=== PATIENT | male | born 1995 | race Caucasian/White ===

== ENCOUNTER 2023-03-06 12:28 | Outpatient (AMB) | payer MEDICARE, MEDICAID, SELFPAY ==
--- NOTE | 2023-03-06 12:36 | A.OFFPC_ITS ---
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 He has PMH significant for anxiety, depression, PTSD, bipolar, and autism spectrum disorder. He reports tightness to his left knee for the past 1 month especially with climbing stairs. He states it feels like it locks. It feels like a little [place] horse in my knee. He reports occasional pain. He reports h/o walking on his toes since childhood. He states he is not interested in medication therapy at this time.? He admits he has been contacted to talk to a therapist but he sleeps during the day and has not been able to connect.? He notes he exercises at the gym every other day and intends to start going daily. His grandmother states the patient continues to spend more time in his room, on his computer. He has a positive response to the PHQ-9 question regarding Thoughts that you would be better off or of hurting yourself in some way. He emphasized too much pressure, too much stress, i can't keep up no more, i'm losing pace, i feel like i'm crashing, i'm getting tired, i'm getting stressed, i'm about to crash. He denies SI/HI at this time, denies plan of committing suicide, and contracts for safety. [facility] Medical History ADHD Anxiety Asperger syndrome Autism spectrum disorder Bipolar 1 disorder Bladder problem Broken femur History of violent behavior Intellectual developmental disorder, mild Tourettes syndrome Uncooperative behavior Family History Father Mentally challenged Social History Housing: House Patient Tobacco Use Status: Never used Tobacco e-Cigarette/Vaping Use: Never Used service: No Current occupational status: unemployed Current occupation: Patient is on [employer]SI Cognitive needs: Yes Hearing needs: No Vision needs: Yes Questionnaire PHQ-9 Over the last 2 weeks, how often have you been bothered by any of the following problems? 1. Little interest or pleasure in doing things: several days 2. Feeling down, depressed, or hopeless: more than half the days 3. Trouble falling or staying asleep, or sleeping too much: nearly every day 4. Feeling tired or having little energy: nearly every day 5. Poor appetite or overeating: not at all 6. Feeling bad about yourself - or that you are a failure or have let yourself or your family down: more than half the days 7. Trouble concentrating on things, such as reading the newspaper or watching television: several days 8. Moving or speaking so slowly that other people could have noticed. Or the opposite - being so fidgety or restless that you have been moving around a lot more than usual: more than half the days 9. Thoughts that you would be better off or of hurting yourself in some way: several days Total score: 15 Depression Screening Interpretation: Positive Depression Screening Follow-up: Existing condition and Community Mental Health Worker F/U 68956 - PHQ-9 Billing: Yes Source: Developed by Drs. Marco De Souza, Tahira Marshall, Nicko Dorado and colleagues, with an educational hailey from [employer]. MIRNA-7 AMB Questionnaire MIRNA-7 Date MIRNA - 7 assessed: 03/06/23 Feeling nervous, anxious, or on edge: 3 = Nearly every day Not being able to stop or control worryin = Several days Worrying too much about different things: 0 = Not at all Trouble relaxin = Not at all Being so restless that it is hard to sit still: 0 = Not at all Becoming easily annoyed or irritable: 3 = Nearly every day Feeling afraid as if something awful might happen: 1 = Several days Total MIRNA-7 score (0-4 normal; 5-9 mild; 10-14 moderate; 15-21 severe): 8 Source: Developed by Drs. Marco De Souza, Tahira Marshall, Nicko Dorado and colleagues, with an educational hailey from [employer]. MIRNA-7 Assessment Billing MINRA-7 Assessment Tool: MIRNA-7 Assessment 80226 Review of Systems Const Details: Const Denies chills, Denies fatigue, Denies fever(s), Denies headache(s) and Denies weakness ENT Denies dizziness and Denies headache(s) Card Denies chest pain, Denies lightheadedness, Denies dyspnea and Denies other (Palpitations) Resp Denies cough, Denies dyspnea, Denies wheezing and Denies other ( shortness of breath) GI Denies abdominal pain, Denies melena, Denies hematochezia, Denies change in bowel habits, Denies dyspepsia and Denies nausea Denies hematuria and Denies dysuria Musc Denies abnormal gait, Denies myalgias, Denies arthralgias, Denies numbness and Denies tingling Skin/Breast Denies rash, Denies unusual bruising and Denies wounds Neuro Denies abnormal gait, Denies dizziness, Denies headache(s), Denies memory loss, Denies numbness, Denies Sensory deficit (Neuro), Denies tingling and Denies weakness Psych Denies anxiety and Denies depression Endo Denies fatigue Aller/Immun Denies wheezing Physical exam (Primary Care) BMI result Body Mass Index 30.3 Tobacco/Smoking Status: Tobacco use Status Tobacco use date assessed 01/10/23 01/10/23 15:32 Patient Tobacco Use Status Never used Tobacco 01/10/23 15:20 e-Cigarette/Vaping Use Never Used 01/10/23 15:20 Depression Screening Interpretation: Positive Depression Screening Follow-up: Existing condition and Community Mental Health Worker F/U Const Other: General: no acute distress and well developed Nutritional Appearance: well nourished Orientation/consciousness: patient oriented x3 HENMT Head: Yes normocephalic and Yes atraumatic Eyes General: appearance normal, both eyes and all related structures Pupils: Equal, round and reactive pupils present EOM: EOMs intact bilaterally Resp Effort & Inspection: normal respiratory effort Auscultation: clear to auscultation bilaterally Cardio Rate: regular rate Rhythm: regular rhythm Heart sounds: S1 normal heart sound present, S2 normal heart sound present, no gallops, no murmurs and no rubs GI Palpation (GI): No Abdominal aortic bruit present, Soft to palpation, nontender, No hepatosplenomegaly present and No Rebound tenderness present Auscultation: normal bowel sounds General: Yes no CVA tenderness Back/Spine/Pelvis Back: no CVA tenderness Cervical Spine: cervical ROM normal and No Cervical spine tenderness Thoracic/Lumbar Spine: thoraco-lumbar ROM normal, No pain with thoraco-lumbar ROM, No thoracic spinal tenderness and No lumbar spinal tenderness Extrem General: Yes normal to inspection, No edema and No calf tenderness Normal range of motion of bilateral knees, no erythema, edema, or overt signs of trauma or injury Skin General: warm and dry. Normal skin color. Normal skin turgor Lesions: no lesions Rashes: no rashes Trauma: no lacerations or abrasions Wounds: no wounds Nails: normal Neuro General: patient oriented x3, gait normal and no focal neuro deficit Cranial nerves: Yes Equal, round and reactive pupils present Cognition (Neuro): normal cognition Gait exam (Neuro): Normal gait present Sensory Exam: No Sensory deficit (Neuro) Psych Appearance: grossly normal Affect: normal affect Attitude: cooperative Thought process: Normal thought process present Assessment and Plan Assessment & Plan (1) Anxiety: Code(s): F41.9 - Anxiety disorder, unspecified Plan: PHQ-9 and MIRNA-7 scores revealed moderately severe depression and mild anxiety respectively Continues to decline medication regimen He met with the community navigator who provided resources to help him connect to a therapist Routine exercise encouraged Encouraged to inform his grandmother or crisis with SI/HI up plan of committing suicide Advised to get outstanding fasting blood work done Follow-up in 2 months or return sooner with worsening or new symptoms Verbalized understanding and agreed with treatment plan. (2) Depression: Code(s): F32.A - Depression, unspecified Plan: As above (3) ADHD: Code(s): F90.9 - Attention-deficit hyperactivity disorder, unspecified type Plan: As above (4) Stiffness of left knee: Code(s): M25.662 - Stiffness of left knee, not elsewhere classified Plan: He reports tightness to his left knee for the past 1 month especially with climbing stairs. He states it feels like it locks. It feels like a little [place] horse in my knee. He reports occasional pain. He reports h/o walking on his toes since childhood. Normal range of motion of bilateral knees, no erythema, edema, or overt signs of trauma or injury His symptoms may be related to history of walking on his toes Referred to PT May take Tylenol ibuprofen for pain or discomfort Follow-up with worsening or new symptoms Verbalized understanding and agreed with treatment plan. Orders: Orders PT Evaluation and Treatment Today M25.662 - Stiffness of left knee, not elsewhere classified Coding Level of Care Code Est Pt Level 4 (03437) Diagnoses Anxiety F41.9 Depression F32.A ADHD F90.9 Stiffness of left knee M25.662 Additional Codes MIRNA-7 Assessment Billing - MIRNA-7 Assessment Tool: MIRNA-7 Assessment [id number] ([id number]) Time Spent (min) 35
[2023-03-06 12:37] VITALS: BP 122/80; PULSE 78; O2SAT 99; BMI 30.3
== END 2023-03-06 13:37 | disposition home or self-care (01) ==
PROVIDERS: PCP Nurse Practitioner Family; Visit Provider Nurse Practitioner Family
DX: F41.9 Anxiety disorder, unspecified (principal); F32.A Depression, unspecified; F90.9 Attention-deficit hyperactivity disorder, unspecified type; M25.662 Stiffness of left knee, not elsewhere classified
CPT/HCPCS: 96127; 99214